=== PATIENT | female | born 1955 ===

== ENCOUNTER 2021-07-17 07:29 | Outpatient (CLI) | payer OTHER | END 2021-07-17 07:35 | disposition home or self-care (01) | LOC: TOM 07:29 | PROVIDERS: ATTEND General Practice | DX: N28.89 Other specified disorders of kidney and ureter (principal) ==

== ENCOUNTER 2022-11-26 08:45 | Inpatient (IN) | payer OTHER ==
[~2022-11-26] VITALS: Ht 157.5 cm; Wt 63.5 kg
[2022-11-26] MEDS ORDERED: METFORMIN HCL500 M3 PO (09:51)
[2022-11-26] MEDS ORDERED: SYNTHROID75 MCG PO (09:52)
[2022-11-26] MEDS ORDERED: EDURANT25 MG PO (09:52)
[2022-11-26] MEDS ORDERED: LOSARTAN POTASS50 MG PO (09:52)
[2022-11-26] MEDS ORDERED: CRESTOR20 MG PO (09:52)
[2022-11-26] MEDS ORDERED: PREZCOBIX 8001 EACH PO (09:53)
[2022-12-02] MEDS ORDERED: DICLOFENAC POTA50 MG (08:52)
[2022-12-02] MEDS ORDERED: DICYCLOMINE HCL20 MG (08:57)
[2022-12-02] MEDS ORDERED: GABAPENTIN600 MG (08:58)
[2022-12-02] MEDS ORDERED: FOLIC ACID1 MG (08:58)
[2022-12-02] MEDS ORDERED: EZETIMIBE10 MG (08:58)
[2022-12-02] MEDS ORDERED: MONTELUKAST SOD10 MG (08:58)
== END 2022-12-03 21:41 | disposition home or self-care (01) | DRG 330 ==
LOC: O/R 12-01 08:07 → OB/GYN 12-01 08:45 → SURG 12-01 17:22
PROVIDERS: ADMIT Colon & Rectal Surgery; ATTEND Colon & Rectal Surgery
PROC: 0DBP4ZZ Excision of Rectum, Percutaneous Endoscopic Approach (ICD-10-PCS; 2022-12-01)
PROC: 0DJD8ZZ Inspection of Lower Intestinal Tract, Via Natural or Artificial Opening Endoscopic (ICD-10-PCS; 2022-12-01)
PROC: 0DTN4ZZ Resection of Sigmoid Colon, Percutaneous Endoscopic Approach (ICD-10-PCS; principal; 2022-12-01 14:00)
DX: K57.32 Diverticulitis of large intestine without perforation or abscess without bleeding (principal); B20 Human immunodeficiency virus [HIV] disease; K92.1 Melena; N73.6 Female pelvic peritoneal adhesions (postinfective); N99.4 Postprocedural pelvic peritoneal adhesions; E03.9 Hypothyroidism, unspecified; E11.9 Type 2 diabetes mellitus without complications; Z20.822 Contact with and (suspected) exposure to COVID-19